=== PATIENT | female | born 1950 | race Caucasian/White ===

== ENCOUNTER 2021-11-05 11:26 | Emergency (ER) | payer MEDICARE, BC ==
[~2021-11-05] VITALS: Ht 177.8 cm; Wt 84.1 kg
[2021-11-05 13:08] VITALS: BP 144/84
[2021-11-05] MEDS ORDERED: LIDOcaine 1% 30ml preserv. free vial IJ STA (13:58)
[2021-11-05] MEDS ORDERED: morphine 4 MG/ML inj SYRINge IV ONE ×2 (14:00→14:35)
--- NOTE | 2021-11-05 14:36 | NUR ---
VERBAL ORDER FROM DR PETERSON FOR MORPHINE 4 MG IV ONCE.
== END 2021-11-05 15:40 | disposition home or self-care (01) ==
LOC: ER 11:27
DX: S52.591A Other fractures of lower end of right radius, initial encounter for closed fracture (principal); W18.39XA Other fall on same level, initial encounter; Y93.G3 Activity, cooking and baking; Y92.090 Kitchen in other non-institutional residence as the place of occurrence of the external cause; Y99.8 Other external cause status; Z87.81 Personal history of (healed) traumatic fracture
CPT/HCPCS: 25605; 73100; 73110; 96374; 96376; 99284; J2270; J3490; 99285; A4565; A6449